=== PATIENT | female | born 1980 | race African-American/Black ===

== ENCOUNTER 2019-07-01 02:45 | Emergency (ER) | payer OTHER ==
[2019-07-01 03:13] LABS: #Basophils 0.1 thou/uL (0.0-0.2); #Eosinphils 0.3 thou/uL (0.0-0.7); #Monocytes 0.6 thou/uL (0.11-0.59); #Neutrophils 2.9 thou/uL (1.40-6.50); %Eosinophils 4.9 % (0.0-10.0); %Lymphocytes 43.3 % (21.0-51.0); %Monocytes 8.7 % (0.0-10.0); %Neutrophils 42.2 % (42.0-75.0); Hemoglobin 12.1 g/dL (12.0-16.0); Mean Corpuscular HGB CONC 33.2 g/dL (32.0-36.0); Mean Corpuscular Hemoglobin 30.8 pg (27.0-31.0); Mean Corpuscular Volume 92.9 fL (78.0-98.0); Mean Platelet Volume 8.9 fL (7.4-10.4); Platelet Count 240 thou/uL (130-400); RBC Distribution Width 13.9 % (11.5-14.5); Red Blood Cell (RBC) Count 3.93 mill/uL (4.20-5.40); White Blood Cell (WBC) Count 6.9 thou/uL (4.8-10.8)
[2019-07-01 03:36] LABS: ALT (SGPT) 11 U/L (8-55); AST (SGOT) 17 U/L (5-34); Albumin 3.8 g/dL (3.5-5.0); Alkaline Phosphatase 62 U/L (40-150); Anion Gap 12 mmol/L (10-20); BUN (Urea Nitrogen) 13 mg/dL (7.0-18.7); Bilirubin, Total 0.3 mg/dL (0.2-1.2); Calc. Creatinine Clearance 0 mL/min (70-130); Carbon Dioxide 22 mmol/L (22-29); Chloride 106 mmol/L (98-107); Estimated GFR-MDRD 73; Globulin 3.4 g/dL (2.4-3.5); Glucose 96 mg/dL (70-105); Potassium 3.5 mmol/L (3.5-5.1); Protein, Total 7.2 g/dL (6.0-8.3); Sodium 136 mmol/L (136-145)
[2019-07-01 04:38] LABS: Bacteria/HPF None Seen HPF (None Seen); Bilirubin Negative (Negative); Blood, Urine Negative (Negative); Clarity Clear (Clear); Glucose, Urine (Dipstick) Normal (Negative); Leukocyte 75 Leu/uL (Negative); Nitrite Negative (Negative); Protein, Urine (Dipstick) 30 mg/dL (Neg-Trace); Urobilinogen Normal mg/dL (Less than 2)
[2019-07-01 04:41] LABS: Pregnancy Test - Urine (BHCG) Negative (Negative); Pregu Control Background? CLEAR/WHITE (CLR/WHITE); Pregu Control Bar Appear? YES (CONTROL BAR); Specific Gravity 1.033 (1.002-1.036)
== END 2019-07-01 04:26 | disposition home or self-care (01) ==
LOC: ERS 02:45
DX: K64.4 Residual hemorrhoidal skin tags (principal)
CPT/HCPCS: 36415; 80053; 81003; 81015; 81025; 85025; 99284

== ENCOUNTER 2020-12-07 10:10 | Emergency (ER) | payer OTHER ==
[2020-12-07] MEDS ORDERED: Ondansetron PF 4 MG/2 ML Vial ONE ×2 (10:22→10:57)
[2020-12-07] MEDS ORDERED: Morphine 4 MG/ML VIAL ONE (10:22)
[2020-12-07] MEDS ORDERED: Boostrix 0.5 ML (Tdap) VIAL ONE (10:26)
[2020-12-07 10:38] LABS: #Basophils 0.1 thou/uL (0.0-0.2); #Eosinphils 0.4 thou/uL (0.0-0.7); #Lymphocytes 2.2 thou/uL (1.20-3.40); #Monocytes 0.5 thou/uL (0.11-0.59); #Neutrophils 2.9 thou/uL (1.40-6.50); %Basophils 1.3 % (0.0-1.0); %Lymphocytes 36.2 % (21.0-51.0); %Monocytes 8.8 % (0.0-10.0); %Neutrophils 47.7 % (42.0-75.0); Hemoglobin 11.1 g/dL (12.0-16.0); Mean Corpuscular HGB CONC 31.4 g/dL (32.0-36.0); Mean Corpuscular Hemoglobin 27.1 pg (27.0-31.0); Mean Corpuscular Volume 86.2 fL (78.0-98.0); Mean Platelet Volume 8.6 fL (7.4-10.4); Platelet Count 264 thou/uL (130-400); RBC Distribution Width 14.4 % (11.5-14.5); Red Blood Cell (RBC) Count 4.11 mill/uL (4.20-5.40); White Blood Cell (WBC) Count 6.1 thou/uL (4.8-10.8)
[2020-12-07 11:02] LABS: ALT (SGPT) 10 U/L (8-55); AST (SGOT) 17 U/L (5-34); Alkaline Phosphatase 52 U/L (40-110); Anion Gap 13 mmol/L (10-20); BUN (Urea Nitrogen) 14 mg/dL (7.0-18.7); Bilirubin, Total 0.4 mg/dL (0.2-1.2); Calc. Creatinine Clearance 0 mL/min (70-130); Carbon Dioxide 25 mmol/L (22-29); Chloride 104 mmol/L (98-107); Glucose 114 mg/dL (70-105); Potassium 3.5 mmol/L (3.5-5.1); Sodium 138 mmol/L (136-145)
[2020-12-07] MEDS ORDERED: Promethazine HCl 25 MG/ML VIAL ONE (11:09)
[2020-12-07 11:18] LABS: BHCG - Serum Negative (NEGATIVE); Pregs Control Background? CLEAR/WHITE (CLR/WHITE); Pregs Control Bar Appear? YES (CONTROL BAR)
[2020-12-07 11:19] LABS: INR-International Normal Ratio 0.9; Prothrombin Time 12.7 sec (12.0-14.7)
[2020-12-07] MEDS ORDERED: Iopamidol-370 76% 500 ML 1 ML ONE (11:49)
[2020-12-07 12:51] LABS: Bilirubin Negative (Negative); Blood, Urine 1+ (Negative); Clarity Clear (Clear); Glucose, Urine (Dipstick) Normal (Negative); Ketone, Urine Negative (Negative); Leukocyte 25 Leu/uL (Negative); Mucous/LPF Rare LPF (<2+); Nitrite Negative (Negative); Protein, Urine (Dipstick) 50 mg/dL (Neg-Trace); Urobilinogen Normal mg/dL (Less than 2); pH, Urine 6.5 (5.0-9.0)
[2020-12-07 12:54] LABS: Bacteria/HPF Rare-Few HPF (None Seen)
[2020-12-07 13:00] LABS: SARS-CoV-2 NAA Rapid Test Not Detected (NotDetected)
[2020-12-07] MEDS ORDERED: hydrOXYzine 25 MG TAB ONE (13:01)
== END 2020-12-07 14:25 | disposition home or self-care (01) ==
LOC: ERS 10:10
DX: S12.110A Anterior displaced Type II dens fracture, initial encounter for closed fracture (principal); S90.812A Abrasion, left foot, initial encounter; D25.9 Leiomyoma of uterus, unspecified; E04.2 Nontoxic multinodular goiter; M54.2 Cervicalgia; R11.0 Nausea; V49.50XA Passenger injured in collision with unspecified motor vehicles in traffic accident, initial encounter; Z23 Encounter for immunization; J45.909 Unspecified asthma, uncomplicated; F17.210 Nicotine dependence, cigarettes, uncomplicated
CPT/HCPCS: 36415; 51702; 70450; 70496; 70498; 71045; 71260; 72125; 74177; 80053; 81003; 81015; 83605; 84703; 85025; 85610; 86850; 86900; 86901; 90471; 90715; 96374; 96375; 96376; G0390; J2270; J2405; J2550; Q9967; U0002

== ENCOUNTER 2020-12-23 08:55 | Outpatient (CLI) | payer OTHER ==
--- NOTE | 2020-12-23 13:18 | RAD ---
4 views of cervical spine: 12/23/2020 HISTORY: C2 fracture seen on prior cervical spine CT FINDINGS: CT of the cervical spine performed 12/07/2020 demonstrated an obliquely oriented fracture wi thin the C2 vertebral body. This examination consists of 4 images, which includes frontal radiograph, a lateral radiograph, swimmer's lateral view, and open-mouth odontoid view. The open-mouth odontoid view demonstrates a normal-appearing dens and C1-2 articulation. The known ob liquely oriented fracture involving the C2 vertebral body cannot be visualized discretely on this examination suggesting interval healing. A degree of nonvisualization of this known fracture could be technical in nature and if clinically warranted, CT would be the study of choice to evaluate for residual fracture line. The swimmer's lateral view demonstrates a normal cervicothoracic junction. La teral imaging of the cervical spine demonstrates no anterolisthesis or retrolisthesis. IMPRESSION: Cervical spine imaging as detailed above.
== END 2020-12-23 08:56 | disposition home or self-care (01) ==
LOC: TBSIIMAG 08:55
PROVIDERS: ATTEND Neurological Surgery
DX: S12.9XXA Fracture of neck, unspecified, initial encounter (principal)
CPT/HCPCS: 72040

== ENCOUNTER 2021-02-05 13:35 | Outpatient (CLI) | payer OTHER | END 2021-02-05 13:36 | disposition home or self-care (01) | LOC: TBSIIMAG 13:35 | PROVIDERS: ATTEND Neurological Surgery | DX: S12.9XXA Fracture of neck, unspecified, initial encounter (principal) | CPT/HCPCS: 72040 ==

== ENCOUNTER 2021-03-06 13:03 | Outpatient (CLI) | payer OTHER | END 2021-03-06 13:04 | disposition home or self-care (01) | LOC: TBSIIMAG 13:03 | PROVIDERS: ATTEND Physician Assistant | DX: S12.9XXA Fracture of neck, unspecified, initial encounter (principal) | CPT/HCPCS: 72040 ==

== ENCOUNTER 2021-04-22 10:34 | Emergency (ER) | payer OTHER ==
[2021-04-22] MEDS ORDERED: Ketorolac Tromethamine 30 MG/ML VIAL ONE (13:09)
== END 2021-04-22 13:33 | disposition home or self-care (01) ==
LOC: ERS 10:34
DX: M54.2 Cervicalgia (principal); G89.29 Other chronic pain; J45.909 Unspecified asthma, uncomplicated; F17.210 Nicotine dependence, cigarettes, uncomplicated; Z79.899 Other long term (current) drug therapy
CPT/HCPCS: 96372; 99283; J1885

== ENCOUNTER 2022-06-04 15:52 | Emergency (ER) | payer MEDICAID, OTHER | END 2022-06-04 16:40 | disposition home or self-care (01) | LOC: ERS 15:52 | DX: S16.1XXA Strain of muscle, fascia and tendon at neck level, initial encounter (principal); F17.210 Nicotine dependence, cigarettes, uncomplicated; Y04.0XXA Assault by unarmed brawl or fight, initial encounter | CPT/HCPCS: 99283 ==

== ENCOUNTER 2024-05-02 13:01 | Emergency (ER) | payer OTHER | END 2024-05-02 13:59 | disposition home or self-care (01) | LOC: ERS 13:01 | DX: S91.312A Laceration without foreign body, left foot, initial encounter (principal); F17.210 Nicotine dependence, cigarettes, uncomplicated; W26.8XXA Contact with other sharp object(s), not elsewhere classified, initial encounter | CPT/HCPCS: 99282 ==